=== PATIENT | female | born 1940 | race Caucasian/White ===

== ENCOUNTER 2021-04-02 06:35 | Observation (INO) | payer OTHER ==
[~2021-04-02] VITALS: Ht 160 cm; Wt 56.3 kg
[2021-04-02 08:00] VITALS: BP 158/74
[2021-04-02] MEDS ORDERED: LIPITOR40 MG PO (08:11)
[2021-04-02] MEDS ORDERED: CALCIUM500 MG PO (08:12)
[2021-04-02] MEDS ORDERED: LEVO-T25 MCG PO (08:13)
[2021-04-02] MEDS ORDERED: GLIPIZIDE 10 MG10 MG PO (08:13)
[2021-04-02] MEDS ORDERED: MACROBID 100 M100 M2 PO (08:14)
[2021-04-02] MEDS ORDERED: MAGNESIUM250 M1 PO (08:14)
[2021-04-02] MEDS ORDERED: MEDROL2 MG PO (08:15)
[2021-04-02] MEDS ORDERED: PHENAZOPYRIDIN200 M2 PO (08:18)
[2021-04-02] MEDS ORDERED: JANUVIA100 MG PO (08:19)
[2021-04-02] MEDS ORDERED: TIZANIDINE HCL4 M2 PO (08:20)
[2021-04-02] MEDS ORDERED: ASA81BEC PO (08:23)
[2021-04-02] MEDS ORDERED: VITAMIN D31250 MCG PO (08:23)
[2021-04-02 09:29] LABS: CALCIUM 9.1 mg/dL (8.5-10.1); CREATININE 0.9 mg/dL (0.6-1.0); POTASSIUM 3.7 mmol/L (3.5-5.1)
--- NOTE | 2021-04-02 13:44 | EKG ---
[address] [place] [address] ELECTROCARDIOGRAM REPORT Name: ASHLEY DICKENS [id number] Admission: 04/02/21 Attend Phys: Lonnie Mendez MD, Discharge: Date of : 38 Report #: [id number] [facility] Test Date: 2021-04-02 Test Time: 10:53:25 Pat Name: ASHLEY DICKENS Department: Room: Gender: F Expanded Function Dental Assistant: : 1940 Requested By: Rehana Malloy Order Number: [id number] : Howard Barry Measurements Intervals [place] Rate: 75 P: 67 MA: 186 QRS: -19 QRSD: 88 T: 32 QT: 418 QTc: 467 Interpretive Statements Sinus rhythm Probable left atrial enlargement Borderline left axis deviation No previous ECG available for comparison Electronically Signed On 04-02-2021 13:44:14 CDT by Howard Barry [email or web address] <ELECTRONICALLY SIGNED> By: Howard Barry MD, [facility] 04/02/21 1344 1053 1053 Howard Barry MD, FACC /EPI
[2021-04-02 14:00] VITALS: BP 126/59
[2021-04-02 14:13] VITALS: BP 126/59
[2021-04-02 16:30] VITALS: BP 147/92
--- NOTE | 2021-04-02 18:08 | NUR ---
[age] YE[age] OLD FEMALE ADMITTED TO 2N ROOM 202. PT WAS ADMITTED TO FOR HEART CATH TODAY. PT ALERT AND ORIENTED TIMES FOUR. VSS. PT DENIES PAIN/SOA. PT TOLEARTES MEDS AND MEALS. RIGHT GROIN SITE C/D/I. PT UP TO RESTROOM WITH STANDBY ASSIST. PT PROGRESSING TOWRADS POC GOALS.
[2021-04-02 19:10] VITALS: BP 138/64
[2021-04-02 23:49] VITALS: BP 120/65
[2021-04-03 03:50] VITALS: BP 137/70
[2021-04-03 04:53] LABS: ALBUMIN 2.9 g/dL (3.4-5.0); CALCIUM 8.1 mg/dL (8.5-10.1); CREATININE 0.8 mg/dL (0.6-1.0); TOTAL BILIRUBIN 0.9 mg/dL (0.2-1.0); TOTAL PROTEIN 5.6 g/dL (6.4-8.2)
[2021-04-03 05:09] LABS: HEMATOCRIT 34.8 % (37.0-47.0); HEMOGLOBIN 11.5 gm/dL (12.0-15.0); MCHC 33.1 g/dL (28.0-37.0); MCV 84.7 fL (80.0-100.0); RBC 4.11 mil/uL (4.20-5.00); RDW 14.5 % (10.5-14.5)
--- NOTE | 2021-04-03 05:44 | NUR ---
PATIENT HAD MILD COMPLAINTS OF CHEST PAIN THIS MORNING. PATIENT RATED PRESSURE 3/10 TO LEFT CHEST. PRESSURE RELIEVED WITH ONE NITRO SUBLINGUAL. EKG OBTAINED WITH NORMAL RESULTS. NURSE TO CONTINUE TO MONITOR.
--- NOTE | 2021-04-03 07:17 | EKG ---
[address] [address] [facility] [place] [address] ELECTROCARDIOGRAM REPORT Name: ASHLEY DICKENS Room #: 202-[facility] M.R.#: [id number] Admission: 04/02/21 Attend Phys: Lonnie Mendez MD, Discharge: Date of : 38 Report #: [id number] [facility] Test Date: 2021-04-03 Test Time: 05:26:19 Pat Name: ASHLEY DICKENS Department: Room: [facility] Gender: F Principal Associate: Fawad EATON : 1940 Requested By: Rehana Malloy Order Number: [id number] MD: Howard Barry Measurements Intervals [place] Rate: 90 P: 47 AR: 151 QRS: -34 QRSD: 88 T: -13 QT: 379 QTc: 464 Interpretive Statements Sinus rhythm Left axis deviation Borderline T abnormalities, inferior leads Compared to ECG 04/02/2021 10:53:25 T-wave abnormality now present Electronically Signed On 04-03-2021 7:17:04 CDT by Howard Barry [email or web address] <ELECTRONICALLY SIGNED> By: Howard Barry MD, [facility] 04/03/21716 5 5 Howard Barry MD, [facility] /EPI
[2021-04-03 07:26] VITALS: BP 103/63
[2021-04-03] MEDS ORDERED: CLOPIDOGREL75 MG PO (07:35)
[2021-04-03] MEDS ORDERED: CRESTOR20 MG PO (07:35)
[2021-04-03 10:28] VITALS: BP 103/63
--- NOTE | 2021-04-03 11:13 | NUR ---
PT ALERT AND ORIENTED TIMES FOUR. VSS. PT DENIES PAIN/SOA. PT TOLERATES MEDS AND MEALS. PT UP WITH STANDBY ASSIST. PLANS FOR DISCHARGE TODAY WILL CONTINUE TO MONITOR.
--- NOTE | 2021-04-03 17:26 | CATHLAB ---
[facility] [address] [place] [address] INVASIVE PROCEDURE REPORT Name: ASHLEY DICKENS Room #: 202-P [facility] Ch[place] Maurice#: [id number] Admission: 04/02/21 Attend Phys: Lonnie Mendez MD, Discharge: 04/03/21 Date of : 38 Report #: [id number] THIS REPORT FOR: cc: FAM - No family physician/PCP FAM - No family physician/PCP Lonnie Mendez MD [facility] ~ APPROVED REPORT Study performed: 04/02/2021 08:37:14 Patient Details Patient Status: Out-Patient Room #: The patient is a 80 year-old female Event Personnel Lonnie Mendez Heavy Equipment Rental Associate, Randell, RTR Monitor, Kelsie Islas RTR Scrub, Alin Hand RN master ocean yacht Performed Art Access - R femoral artery* Left Heart Cath w/or w/o Coronaries 7121852 [facility] [address] w/wo Plasty Single LAD 070756 [place] [address] w/wo Plasty Single RCA 454630 Hemostasis w/ Mynx Aortogram Abdominal Peripheral Angio 601537 58269 Initial Mod Sed Same Phys/QHP Gr5y 792810 23633 Mod Sed Same Phys/QHP Ea 303075 Procedure Narrative The Right Groin^ was infiltrated with 1% Lidocaine subcutaneous anesthesia. A PINNACLE 6FR Sheath #[id number] sheath was inserted into the RFA^. Coronary angiography was performed using coronary diagnostic catheters. The right coronary system was accessed and visualized with a JR4 catheter. The left coronary system was accessed and visualized with a JL4 catheter. The left ventricle was accessed and visualized with a PIGTAIL catheter. Left ventriculogram was performed in 30 degree projection. An aortogram of the abdominal aorta was performed. Closure device was deployed with a Fr MYNXGRIP 6/7F #[id number]. The patient tolerated the procedure well and there were no complications associated with the procedure. There was no hematoma. Intraoperative Conscious Sedation Sedation start time: 9:24 Case end Time: 10:29 Fentanyl 100 mcg Versed 1.[address] [address] INVASIVE PROCEDURE REPORT Name: MANINDERASHLEY Griffith Room #: 202-P [facility]#: [id number] Admission: 04/02/21 Attend Phys: Lonnie Mendez, Discharge: 04/03/21 Date of : 38 Report #: [id number] Dose: DAP 6580.11 cGycm2 918 mGy Contrast Type and Amount: Omnipaque 205 ml Hemodynamics The aortic pressure is 131/60 mmHg with a mean of 83 mmHg. The left ventricular pressure is 144/1 mmHg with a mean of mmHg. The left ventricular end diastolic pressure is 14 mmHg. PCI Technique Lesion Percutaneous coronary intervention was performed on the mid left anterior descending artery segment. A LAUNCHER 6FR EBU 3.5 #[id number] Guide Catheter was used to engage the ostium. A Luge Wire .014 x 182CM #[id number] Interventional Guidewire was used to cross the lesion. BALLOON DILATION A Balloon catheter Sprinter OTW 2.25 x 15 #[id number] was inserted and inflated up to 10.00atm for 27seconds. Additional Inflation: 10.00atm for 20seconds. STENT DEPLOYMENT A drug-eluting stent RESOLUTE RISA OTW 2.25 X 18 #[id number] was inserted and inflated up to 14.00atm for 26seconds. PCI Technique Lesion 2 Percutaneous Coronary Intervention was performed on the distal right coronary artery. A LAUNCHER 6FR JR 4 90CM #[id number] Guide Catheter was used to engage the ostium. A Luge Wire .014 x 182CM #[id number] Interventional Guidewire was used to cross the lesion. Balloon Dilation A Balloon catheter Sprinter OTW 2.5 x 12 #[id number] was inserted and inflated up to 5.00atm for 14seconds. Additional Inflation: 14.00atm for 23seconds. Stent Deployment A drug-eluting stent RESOLUTE RISA OTW 3.0 X 22 #[id number] was inserted and inflated up to 14.00atm for 41seconds. PCI Technique Lesion 3 Percutaneous Coronary Intervention was performed on the right posterior descending artery. A LAUNCHER 6FR JR 4 90CM #[id number] Guide Catheter was used to engage the ostium. A Luge Wire .014 x 182CM #[id number] Interventional Guidewire was used to cross the lesion. Stent Deployment [address] [address] INVASIVE PROCEDURE REPORT Name: ASHLEY DICKENS Room #: 202-P [facility] M.R.#: [id number] Admission: 04/02/21 Attend Phys: Lonnie Mendez, Discharge: 04/03/21 Date of : 38 Report #: [id number] A drug-eluting stent RESOLUTE RISA OTW 2.25 X 8 #[id number] was inserted and inflated up to 18.00atm for 26seconds. Conclusion #1 Successful PTCA stent of high-grade mid LAD lesion. Placement of a 2.25 x 18 resolute Risa SANTANA grade III flow 0% residual moderate diffuse disease proximal vessel. #2 successful PTCA stent of the distal high-grade long lesion in the dominant right placement of a 3.0 x 22 resolute Risa SANTANA grade III flow no dissection or thrombus formation. #3 successful PTCA stent of the proximal PDA with placement of a 2.25 x 8 resolute stent SANTANA grade III flow. #4 moderately significant proximal circumflex disease with calcification 60 to 70% with a 50% second OM branch. #5 normal left ventricular size and systolic function EF 55% #6 abdominal aorta with distal abdominal aortic stenosis of 40% no aneurysm. Recommendations and plan: Continue aggressive risk factor modification. Dual antiplatelet therapy x1 year. Transfer to CCU in stable but guarded condition. Hemodynamically stable and pain-free. <ELECTRONICALLY SIGNED> By: Lonnie Mendez MD, FACC 04/03/215 24 24 Lonnie Mendez MD, FACC /INF
== END 2021-04-03 11:46 | disposition home or self-care (01) ==
LOC: CATH 06:35 → 2N 09:52 → CATH 12:10 → 2N 04-03 11:46
PROVIDERS: Nurse Practitioner Adult Health; ADMIT Internal Medicine Cardiovascular Disease; ATTEND Internal Medicine Cardiovascular Disease
DX: I25.10 Atherosclerotic heart disease of native coronary artery without angina pectoris (principal); I10 Essential (primary) hypertension; E78.5 Hyperlipidemia, unspecified; E11.9 Type 2 diabetes mellitus without complications; E03.9 Hypothyroidism, unspecified; E78.00 Pure hypercholesterolemia, unspecified; Z79.82 Long term (current) use of aspirin; Z79.899 Other long term (current) drug therapy

== ENCOUNTER → 2021-05-01 | Outpatient (CLI) | payer MEDICARE, OTHER ==
[~2021-05-01] MED LIST: ASA81BEC PO; CALCIUM500 MG PO; CLOPIDOGREL75 MG PO; CRESTOR20 MG PO; GLIPIZIDE 10 MG10 MG PO; JANUVIA100 MG PO; LEVO-T25 MCG PO; LIPITOR40 MG PO; MACROBID 100 M100 M2 PO; MAGNESIUM250 M1 PO; MEDROL2 MG PO; PHENAZOPYRIDIN200 M2 PO; TIZANIDINE HCL4 M2 PO; VITAMIN D31250 MCG PO
== END ==
LOC: SJCVC 13:19
PROVIDERS: ATTEND Internal Medicine Cardiovascular Disease
DX: R94.31 Abnormal electrocardiogram [ECG] [EKG] (principal); R00.0 Tachycardia, unspecified; I25.10 Atherosclerotic heart disease of native coronary artery without angina pectoris; I10 Essential (primary) hypertension; E78.5 Hyperlipidemia, unspecified; E11.9 Type 2 diabetes mellitus without complications; E03.9 Hypothyroidism, unspecified; Z82.49 Family history of ischemic heart disease and other diseases of the circulatory system; Z79.82 Long term (current) use of aspirin; Z79.899 Other long term (current) drug therapy; Z88.0 Allergy status to penicillin; Z88.2 Allergy status to sulfonamides; Z88.8 Allergy status to other drugs, medicaments and biological substances

== ENCOUNTER → 2021-07-03 | Outpatient (CLI) | payer MEDICARE, OTHER | LOC: SJCVC 13:15 | PROVIDERS: ATTEND Nuclear Medicine Nuclear Cardiology | DX: I25.10 Atherosclerotic heart disease of native coronary artery without angina pectoris (principal); I73.9 Peripheral vascular disease, unspecified; E78.00 Pure hypercholesterolemia, unspecified; E11.9 Type 2 diabetes mellitus without complications; E03.9 Hypothyroidism, unspecified; E78.5 Hyperlipidemia, unspecified; Z98.61 Coronary angioplasty status; Z98.890 Other specified postprocedural states; Z88.0 Allergy status to penicillin; Z88.1 Allergy status to other antibiotic agents; Z88.5 Allergy status to narcotic agent; Z88.8 Allergy status to other drugs, medicaments and biological substances; Z79.82 Long term (current) use of aspirin; Z79.899 Other long term (current) drug therapy ==